=== PATIENT | female | born 1945 | race Caucasian/White ===

== ENCOUNTER → 2017-06-21 09:33 | Outpatient (CLI) | payer OTHER ==
[~2017-06-21 09:33] MED LIST: ALL DAY ALLERGY10 M3 PO; ALLOPURINOL100 MG PO; COZAAR100 MG PO; FLONASE16 GM NS; MONTELUKAST SOD10 MG PO; NABUMETONE500 MG PO; PERCOCET 5/3251 TAB PO; PROVENTIL S1 ML/5 MG IH; TENORMIN50 M1 PO
== END | disposition home or self-care (01) ==
LOC: LAB 09:33
DX: R53.83 Other fatigue (principal); I11.9 Hypertensive heart disease without heart failure; I48.0 Paroxysmal atrial fibrillation

== ENCOUNTER 2017-06-21 09:52 | Outpatient (CLI) | payer OTHER | END 2017-06-21 09:57 | disposition home or self-care (01) | LOC: RAD 09:52 | DX: I11.9 Hypertensive heart disease without heart failure (principal); I48.0 Paroxysmal atrial fibrillation ==

== ENCOUNTER → 2017-09-07 | Outpatient (CLI) | payer OTHER | END | disposition home or self-care (01) | LOC: LAB 08:33 | DX: I48.0 Paroxysmal atrial fibrillation (principal); M1A.00X0 Idiopathic chronic gout, unspecified site, without tophus (tophi); E66.01 Morbid (severe) obesity due to excess calories; I10 Essential (primary) hypertension; E78.1 Pure hyperglyceridemia; M79.7 Fibromyalgia; N18.1 Chronic kidney disease, stage 1; J44.0 Chronic obstructive pulmonary disease with (acute) lower respiratory infection; Z12.31 Encounter for screening mammogram for malignant neoplasm of breast; N64.4 Mastodynia; E55.9 Vitamin D deficiency, unspecified; Z12.11 Encounter for screening for malignant neoplasm of colon; J43.8 Other emphysema ==

== ENCOUNTER 2017-09-13 10:38 | Outpatient (CLI) | payer OTHER | END 2017-09-13 10:45 | disposition home or self-care (01) | LOC: LAB 10:38 | DX: I48.0 Paroxysmal atrial fibrillation (principal); M1A.00X0 Idiopathic chronic gout, unspecified site, without tophus (tophi); E66.01 Morbid (severe) obesity due to excess calories; I10 Essential (primary) hypertension; E78.1 Pure hyperglyceridemia; M79.7 Fibromyalgia; N18.1 Chronic kidney disease, stage 1; J44.0 Chronic obstructive pulmonary disease with (acute) lower respiratory infection; Z12.31 Encounter for screening mammogram for malignant neoplasm of breast; N64.4 Mastodynia; E55.9 Vitamin D deficiency, unspecified; Z12.11 Encounter for screening for malignant neoplasm of colon; J43.8 Other emphysema ==

== ENCOUNTER 2017-09-13 11:11 | Outpatient (CLI) | payer OTHER | END 2017-09-13 11:16 | disposition home or self-care (01) | LOC: MAMO-SONO 11:11 | DX: Z12.31 Encounter for screening mammogram for malignant neoplasm of breast (principal); Z87.898 Personal history of other specified conditions; N64.4 Mastodynia; I48.0 Paroxysmal atrial fibrillation; M1A.00X0 Idiopathic chronic gout, unspecified site, without tophus (tophi); E66.01 Morbid (severe) obesity due to excess calories; I10 Essential (primary) hypertension; E78.1 Pure hyperglyceridemia; M79.7 Fibromyalgia; N18.1 Chronic kidney disease, stage 1; J44.0 Chronic obstructive pulmonary disease with (acute) lower respiratory infection; J43.8 Other emphysema ==

== ENCOUNTER 2019-06-05 11:28 | Outpatient (CLI) | payer OTHER | END 2019-06-05 11:30 | disposition home or self-care (01) | LOC: MAMO-SONO 11:28 | DX: I11.9 Hypertensive heart disease without heart failure (principal); I70.0 Atherosclerosis of aorta; I48.0 Paroxysmal atrial fibrillation; E55.9 Vitamin D deficiency, unspecified; E46 Unspecified protein-calorie malnutrition; J45.41 Moderate persistent asthma with (acute) exacerbation; M1A.00X0 Idiopathic chronic gout, unspecified site, without tophus (tophi); E66.01 Morbid (severe) obesity due to excess calories; N18.1 Chronic kidney disease, stage 1; M79.7 Fibromyalgia; E78.1 Pure hyperglyceridemia; Z12.31 Encounter for screening mammogram for malignant neoplasm of breast; Z13.820 Encounter for screening for osteoporosis; N64.4 Mastodynia ==

== ENCOUNTER 2019-06-10 09:57 | Outpatient (CLI) | payer OTHER | END 2019-06-10 16:38 | disposition home or self-care (01) | LOC: NUCLEAR 09:57 | DX: M81.0 Age-related osteoporosis without current pathological fracture (principal); I11.9 Hypertensive heart disease without heart failure; I70.0 Atherosclerosis of aorta; I48.0 Paroxysmal atrial fibrillation; E55.9 Vitamin D deficiency, unspecified; E46 Unspecified protein-calorie malnutrition; J45.41 Moderate persistent asthma with (acute) exacerbation; M1A.00X0 Idiopathic chronic gout, unspecified site, without tophus (tophi); E66.01 Morbid (severe) obesity due to excess calories; N18.1 Chronic kidney disease, stage 1; M79.7 Fibromyalgia; E78.1 Pure hyperglyceridemia; Z12.31 Encounter for screening mammogram for malignant neoplasm of breast; Z13.820 Encounter for screening for osteoporosis ==

== ENCOUNTER 2020-01-07 08:40 | Outpatient (CLI) | payer OTHER | END 2020-01-07 08:50 | disposition home or self-care (01) | LOC: SONOGRAMA 08:40 | PROVIDERS: ATTEND Internal Medicine Gastroenterology | DX: R10.13 Epigastric pain (principal) ==

== ENCOUNTER → 2020-01-07 09:55 | Outpatient (CLI) | payer OTHER | END | disposition home or self-care (01) | LOC: LAB 09:55 | PROVIDERS: ATTEND Internal Medicine | DX: I11.9 Hypertensive heart disease without heart failure (principal); I70.0 Atherosclerosis of aorta; E55.9 Vitamin D deficiency, unspecified; I48.0 Paroxysmal atrial fibrillation; J45.41 Moderate persistent asthma with (acute) exacerbation; M79.7 Fibromyalgia; E78.1 Pure hyperglyceridemia; N18.3 Chronic kidney disease, stage 3 (moderate); E46 Unspecified protein-calorie malnutrition ==

== ENCOUNTER 2021-03-21 10:29 | Outpatient (CLI) | payer OTHER | END 2021-03-21 10:41 | disposition home or self-care (01) | LOC: MAMO-SONO 10:29 | PROVIDERS: ATTEND Internal Medicine | DX: R92.0 Mammographic microcalcification found on diagnostic imaging of breast (principal); I70.0 Atherosclerosis of aorta; I11.9 Hypertensive heart disease without heart failure; E55.9 Vitamin D deficiency, unspecified; I48.0 Paroxysmal atrial fibrillation; J45.41 Moderate persistent asthma with (acute) exacerbation; E66.01 Morbid (severe) obesity due to excess calories; M79.7 Fibromyalgia; Z12.31 Encounter for screening mammogram for malignant neoplasm of breast; N64.4 Mastodynia ==

== ENCOUNTER → 2022-04-28 | Outpatient (CLI) | payer OTHER | END | disposition home or self-care (01) | LOC: SONOGRAMA 09:58 | PROVIDERS: ATTEND Internal Medicine | DX: E04.1 Nontoxic single thyroid nodule (principal) ==

== ENCOUNTER 2022-05-05 07:12 | Outpatient (CLI) | payer OTHER | END 2022-05-05 07:13 | disposition home or self-care (01) | LOC: NUCLEAR 07:12 | PROVIDERS: ATTEND Internal Medicine | DX: E83.52 Hypercalcemia (principal); Z88.8 Allergy status to other drugs, medicaments and biological substances | CPT/HCPCS: 78072; A9500 ==

== ENCOUNTER 2022-05-12 11:26 | Inpatient (IN) | payer OTHER ==
[~2022-05-12] VITALS: Ht 157.5 cm; Wt 84.8 kg
--- NOTE | 2022-05-12 12:23 | NUR ---
SE RECIBE PACIENTE EN AMBULANCIA, LA MISMA SE ENCUENTRA ALERTA Y ORIENTADA X3, REFIERE QUE DESDE BARRERA COMENZO CON DIFICULTAD RESPIRATORIA HEMANTH QUE LA MISMA EMPEORO EL AD DE HOY, SE MONITOREAN S/V. PACIENTE ES TRASLADADAS A AREA DE CHEST PAIN, SE UBICA EN CAMA, SE CONECTA A MONITOR CARDIACO Y OXIMETRIA DE PULSO, SE LLAMA A PERSONAL DE TERAPIA RESPIRATORIA. SE COLECTAN MUESTRAS DE LABORATORIO Y SE CANALIZA BAJO MEDIDAS ASEPTICAS, AREA DE VENOPUNCION PATENTE, NINA DE EDEMA Y ERITEMA, SE COLOCA MARQUEZ CATETER BAJO MEDIDAS ASEPTICAS Y ESTERILES, SE OBSERVA EGRESO URINARIO COLOR AMARILLO OBSCURO, NINA DE SANGRADO Y CON SEDIMENTACION. PERSONAL DE TERAPIAS REALIZA ABG, COLOCA VENTURY MASK Y PERSONAL DE ANDREW X REALIZA ESTUDIO. SE ADMINISTRAN MEDICAMENTOS GENEVA ORDEN. SE MANTIENE PACIENTE BAJO OBSERVACION POR CAMBIOS EN [place] MEDICO.
--- NOTE | 2022-05-12 15:11 | NUR ---
PACIENTE ELIMINA A JENNIFER DEL MARQUEZ CATETER 1300ML
--- NOTE | 2022-05-12 16:05 | NUR ---
FEMINA DE 76 ANOS ES RECIBIDA POR TURNO ANTERIOR. PTE SE OBSERVA A/O X3. PTE TIENE CANALIZACION 2 CANALIZACIONES EN EL RA Y LA CON ANGIO 20. PTE TIENE VENTURI MASK. PTE SE LE EJECUTA ORDEN MEDICA EN HINKLE TOTALIDAD.
--- NOTE | 2022-05-12 16:15 | NUR ---
PTE ELIMINA DE MARQUEZ 300ML
[2022-05-16] MEDS ORDERED: ROSUVASTATIN CA10 MG (10:47)
[2022-05-16] MEDS ORDERED: MECLIZINE HCL12.5 MG (10:48)
[2022-05-16] MEDS ORDERED: VITAMIN D350 MCG (10:48)
== END 2022-05-16 18:43 | disposition home or self-care (01) | DRG 203 ==
LOC: ER 11:26 → MEDI 18:49
PROVIDERS: ADMIT Internal Medicine; ATTEND Internal Medicine
PROC: B246ZZZ Ultrasonography of Right and Left Heart (ICD-10-PCS; principal; 2022-05-12)
PROC: 3E0F7GC Introduction of Other Therapeutic Substance into Respiratory Tract, Via Natural or Artificial Opening (ICD-10-PCS; 2022-05-13)
DX: J45.901 Unspecified asthma with (acute) exacerbation (principal); R09.02 Hypoxemia; D72.828 Other elevated white blood cell count; I11.0 Hypertensive heart disease with heart failure; I50.9 Heart failure, unspecified; E11.9 Type 2 diabetes mellitus without complications; Z20.822 Contact with and (suspected) exposure to COVID-19; Z79.4 Long term (current) use of insulin

== ENCOUNTER 2022-07-20 10:37 | Outpatient (CLI) | payer OTHER ==
[~2022-07-20 10:37] MED LIST changes: +MECLIZINE HCL12.5 MG; +ROSUVASTATIN CA10 MG; +VITAMIN D350 MCG
== END 2022-07-20 10:54 | disposition home or self-care (01) ==
LOC: RAD 10:37
DX: J81.0 Acute pulmonary edema (principal)

== ENCOUNTER 2022-08-24 07:53 | Outpatient (CLI) | payer OTHER | END 2022-08-24 07:54 | disposition home or self-care (01) | LOC: NUCLEAR 07:53 | PROVIDERS: ATTEND Internal Medicine Nephrology | DX: E21.0 Primary hyperparathyroidism (principal) | CPT/HCPCS: 78072; A9500 ==

== ENCOUNTER 2023-01-10 14:13 | Outpatient (CLI) | payer OTHER | END 2023-01-10 14:14 | disposition home or self-care (01) | LOC: NUCLEAR 14:13 | PROVIDERS: ATTEND Otolaryngology | DX: E21.0 Primary hyperparathyroidism (principal) ==

== ENCOUNTER → 2023-01-11 09:01 | Outpatient (CLI) | payer OTHER | END | disposition home or self-care (01) | LOC: LAB 09:01 | PROVIDERS: ATTEND Otolaryngology | DX: E21.0 Primary hyperparathyroidism (principal); N18.30 Chronic kidney disease, stage 3 unspecified; R80.9 Proteinuria, unspecified ==

== ENCOUNTER 2023-01-17 08:09 | Outpatient (CLI) | payer OTHER | END 2023-01-17 08:24 | disposition home or self-care (01) | LOC: TOM 08:09 | PROVIDERS: ATTEND Otolaryngology | DX: Z12.31 Encounter for screening mammogram for malignant neoplasm of breast (principal); N64.4 Mastodynia; E21.0 Primary hyperparathyroidism | CPT/HCPCS: 70492; 76641; 77067; Q9965 ==

== ENCOUNTER 2023-01-22 09:11 | Outpatient (CLI) | payer OTHER | END 2023-01-22 09:16 | disposition home or self-care (01) | LOC: SONOGRAMA 09:11 | PROVIDERS: ATTEND Pathology Anatomic Pathology & Clinical Pathology | DX: D44.0 Neoplasm of uncertain behavior of thyroid gland (principal); D34 Benign neoplasm of thyroid gland; E04.9 Nontoxic goiter, unspecified; E07.9 Disorder of thyroid, unspecified ==

== ENCOUNTER 2023-05-07 16:34 | Emergency (ER) | payer OTHER ==
[~2023-05-07] VITALS: Ht 152.4 cm; Wt 82.6 kg
[2023-05-07] MEDS ORDERED: PEPCID AC10 MG PO (17:43)
[2023-05-07] MEDS ORDERED: CRESTOR10 MG PO (17:44)
[2023-05-07] MEDS ORDERED: ELIQUIS5 MG PO (17:44)
[2023-05-07] MEDS ORDERED: ALLERGY RELIE15.8 ML NS (17:44)
[2023-05-07 19:20] LABS: HEMOGLOBIN 12.9 g/dL (12.0-15.00); MEAN CELL VOLUME 88.6 fL (80.00-100.00); MEAN CORPUSCULAR HGB CONC 33.9 g/dl (32.0-36.0); PLATELET COUNT 239 K/uL (150-450); RED CELL DISTRIBUTION WIDTH 14.9 % (11.5-14.5)
[2023-05-07 19:24] LABS: MEAN CORPUSCULAR HEMOGLOBIN 30.7 pg (27.00-32.0)
[2023-05-07 19:38] LABS: ALBUMIN 3.8 gm/dL (3.4-5.0); BILIRUBIN TOTAL 0.98 mg/dL (0.3-1.2); CREATININE SERUM 1.05 mg/dL (0.55-1.02); GFR 50.56; GLOBULINA 4.3 G/DL (2.4-3.5); POTASSIUM 4.34 mEq/L (3.5-5.1); TOTAL PROTEIN 8.1 gm/dL (6.4-8.2)
[2023-05-07] MEDS ORDERED: ONDANSETRON ODT8 MG PO (22:28)
[2023-05-07] MEDS ORDERED: PEPCID AC20 MG PO (22:28)
== END 2023-05-07 22:36 | disposition home or self-care (01) ==
LOC: ER 16:34
PROVIDERS: General Practice
DX: K52.9 Noninfective gastroenteritis and colitis, unspecified (principal); R11.2 Nausea with vomiting, unspecified; Z20.822 Contact with and (suspected) exposure to COVID-19; Z88.8 Allergy status to other drugs, medicaments and biological substances; Z88.0 Allergy status to penicillin; Z91.013 Allergy to seafood
CPT/HCPCS: 36415; 96365; 96366; 99284; J1885; J2405; J2930; J3490

== ENCOUNTER 2023-05-30 13:38 | Outpatient (CLI) | payer OTHER ==
[~2023-05-30 13:38] MED LIST changes: +ALLERGY RELIE15.8 ML NS; +CRESTOR10 MG PO; +ELIQUIS5 MG PO; +ONDANSETRON ODT8 MG PO; +PEPCID AC10 MG PO; +PEPCID AC20 MG PO
== END 2023-05-30 13:46 | disposition home or self-care (01) ==
LOC: TOM 13:38
DX: R51.9 Headache, unspecified (principal); I11.9 Hypertensive heart disease without heart failure

== ENCOUNTER 2023-05-31 13:49 | Emergency (ER) | payer OTHER ==
[~2023-05-31] VITALS: Ht 157.5 cm; Wt 77.1 kg
[2023-05-31 16:02] LABS: HEMATOCRIT 37.6 % (36.0-45.00); HEMOGLOBIN 12.6 g/dL (12.0-15.00); MEAN CELL VOLUME 87.9 fL (80.00-100.00); MEAN CORPUSCULAR HEMOGLOBIN 29.5 pg (27.00-32.0); MEAN CORPUSCULAR HGB CONC 33.5 g/dl (32.0-36.0); PLATELET COUNT 213 K/uL (150-450); RED BLOOD COUNT 4.27 M/uL (4.00-6.00); RED CELL DISTRIBUTION WIDTH 15.3 % (11.5-14.5)
[2023-05-31 16:23] LABS: CALCIUM 9.5 mg/dL (8.5-10.1); CREATININE SERUM 1.47 mg/dL (0.55-1.02); GFR 34.2; POTASSIUM 3.69 mEq/L (3.5-5.1)
[2023-05-31 16:25] LABS: INR 1.32; PROTHROMBIN TIME 13.6 SECONDS (9.0-11.5)
== END 2023-06-01 07:37 | disposition designated cancer center or children's hospital (05) ==
LOC: ER 13:49
PROVIDERS: Emergency Medicine
DX: I62.02 Nontraumatic subacute subdural hemorrhage (principal); I10 Essential (primary) hypertension; I49.8 Other specified cardiac arrhythmias; J45.909 Unspecified asthma, uncomplicated; E78.00 Pure hypercholesterolemia, unspecified; Z88.0 Allergy status to penicillin; Z91.013 Allergy to seafood; Z91.041 Radiographic dye allergy status
CPT/HCPCS: 70553

== ENCOUNTER 2023-08-21 11:04 | Outpatient (CLI) | payer OTHER | END 2023-08-21 11:16 | disposition home or self-care (01) | LOC: TOM 11:04 | PROVIDERS: ATTEND Neurological Surgery | DX: S06.5X0A Traumatic subdural hemorrhage without loss of consciousness, initial encounter (principal) ==

== ENCOUNTER 2024-11-04 11:51 | Outpatient (CLI) | payer OTHER | END 2024-11-04 11:57 | disposition home or self-care (01) | LOC: RAD 11:51 | PROVIDERS: ATTEND Internal Medicine | DX: J20.8 Acute bronchitis due to other specified organisms (principal); J44.0 Chronic obstructive pulmonary disease with (acute) lower respiratory infection ==